=== PATIENT | male | born 1990 | race Caucasian/White ===

== ENCOUNTER 2018-11-29 05:28 | Day surgery (SDC) | payer OTHER ==
[2018-11-29] MEDS ORDERED: LIDOCAINE 2% (SDV) 5 ML INJ (07:00)
[2018-11-29] MEDS ORDERED: SEVOFLURANE 15 MIN (07:00)
[2018-11-29] MEDS ORDERED: ONDANSETRON 4 MG INJ (07:00)
[2018-11-29] MEDS ORDERED: DEXAMETHASONE 4 MG/ML 5 ML INJ (07:00)
[2018-11-29] MEDS ORDERED: PROPOFOL 20 ML (07:16)
[2018-11-29] MEDS ORDERED: MIDAZOLAM 1 MG/ML 2 ML INJ (07:16)
[2018-11-29] MEDS ORDERED: FENTAnyl 50 MCG/ML VIAL (07:16)
[2018-11-29] MEDS ORDERED: METOCLOPRAMIDE 10 MG INJ (07:18)
[2018-11-29] MEDS ORDERED: HYDROmorphONE 1 MG/5 ML IV SYRINGE IV ×3 (07:30)
[2018-11-29] MEDS ORDERED: FENTAnyl 50 MCG/ML VIAL IV ×2 (07:30)
[2018-11-29] MEDS ORDERED: DIPHENHYDRAMINE 50 MG INJ IV (07:30)
[2018-11-29] MEDS: LIDOCAINE 1% (MPF) 30 ML INJ (07:31)
[2018-11-29] MEDS ORDERED: CEFAZOLIN 1 GM INJ (07:32)
[2018-11-29] MEDS: DEXAMETHASONE 4 MG/ML 1 ML INJ (08:20)
[2018-11-29] MEDS: BUPIVACAINE 0.5% (SDV) 30 ML INJ (08:20)
[2018-11-29] MEDS: ONDANSETRON 4 MG INJ IV (09:08)
[2018-11-29] MEDS: MEPERIDINE 25 MG INJ IV (09:08)
== END 2018-11-29 10:20 | disposition home or self-care (01) ==
LOC: SDS 05:28
DX: M21.611 Bunion of right foot (principal)
CPT/HCPCS: 28296; 88304; 88311